=== PATIENT | male | born 1940 | race Caucasian/White ===

== ENCOUNTER 2019-03-03 13:33 | Emergency (ER) | payer MEDICARE ==
[2019-03-03 13:42] VITALS: BMI 33.6
[2019-03-03] MEDS ORDERED: LASIX40 MG PO (13:44)
[2019-03-03] MEDS ORDERED: PACERONE200 MG PO (13:44)
[2019-03-03] MEDS ORDERED: COZAAR50 MG PO (13:44)
[2019-03-03] MEDS ORDERED: LIPITOR40 MG PO (13:44)
[2019-03-03] MEDS ORDERED: TOPROL XL100 MG PO (13:45)
[2019-03-03] MEDS ORDERED: KLOR-CON 1010 MEQ PO (13:46)
[2019-03-03] MEDS ORDERED: VIAGRA100 MG PO (13:46)
[2019-03-03] MEDS ORDERED: XARELTO20 MG PO (13:46)
[2019-03-03] MEDS ORDERED: COLACE100 MG PO (13:47)
[2019-03-03 14:08] LABS: BASOPHILS 0.2 % (0-2); EOSINOPHILS 2.3 % (0-7); HEMATOCRIT 41.6 % (42.0-54.0); LYMPHOCYTES 31.4 % (15-50); MCH 34.7 pg (26.0-34.0); MCHC 36.1 g/dL (31.0-37.0); MCV 96.3 fL (80.0-100.0); MEAN PLATELET VOLUME 9.7 fL (7.4-10.4); MONOCYTES 9.6 % (2-11); NEUTROPHILS 56.5 % (40-80); PLATELET COUNT 139 10x3/uL (130-400); RBC 4.32 10x6/uL (4.20-6.10); RDW 13.1 % (11.5-14.5); WBC 5.1 10x3/uL (4.8-10.8)
[2019-03-03 14:29] LABS: ALBUMIN 3.6 g/dL (3.4-5.0); ALKALINE PHOSPHATASE 99 U/L (46-116); ALT (SGPT) 45 U/L (10-68); BILIRUBIN - TOTAL 0.98 mg/dL (0.2-1.3); CALC OSMOLALITY 279 mosm/kg (275-300); CALCIUM 8.7 mg/dL (8.5-10.1); CARBON DIOXIDE 28.6 mmol/L (21.0-32.0); CHLORIDE - SERUM 108 mmol/L (98-107); GLUCOSE 89 mg/dL (74-106); POTASSIUM - SERUM 3.5 mmol/L (3.5-5.1); PROTEIN - SERUM 7.2 g/dL (6.4-8.2); SODIUM 141 mmol/L (136-145); UREA NITROGEN 13 mg/dL (7-18); eGFR NON AFRICAN AMERICAN 77 mL/min (90-120)
[2019-03-03 16:57] VITALS: BP 134/92
== END 2019-03-03 16:58 | disposition home or self-care (01) ==
LOC: D.ER 13:33
PROVIDERS: Emergency Medicine
DX: R74.8 Abnormal levels of other serum enzymes (principal); Z79.01 Long term (current) use of anticoagulants; I48.91 Unspecified atrial fibrillation; I10 Essential (primary) hypertension